=== PATIENT | male | born 1990 | race Two or more races ===

== ENCOUNTER 2016-04-13 11:11 | Emergency (ER) | payer SELFPAY ==
--- NOTE | 2016-04-13 11:45 | ER Document Report ---
ED Medical Screen (RME) - General Stated Complaint: FLU LIKE SYMPTOMS Notes: patient is a 25 year old male p/w body aches, headache, warm flashes, nausea, nasal drainage, sore throat since this AM. dry cough (-) influenza vaccine I have greeted and performed a rapid initial assessment of this patient. A comprehensive ED assessment and evaluation of the patient, analysis of test results and completion of the medical decision making process will be conducted by additional ED providers. TRAVEL OUTSIDE OF THE [place] IN LAST 30 DAYS: No - Related Data Allergies/Adverse Reactions: dextromethorphan HBr [From Pertussin CS] Allergy (Verified 06/22/12 09:18)
--- NOTE | 2016-04-13 16:28 | ER Document Report ---
[id number] Chief Complaint: Pain All Over Stated Complaint: FLU LIKE SYMPTOMS Notes: Patient is a 25 her male presenting to the emergency department concerned of flulike symptoms onset this morning. Patient admits to bodyaches, bbreathe in deep hurts, headache, cough, sore throat. no med issues. no pcp. 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 Illness going around work. smoker. Normal pharynx. no rales, rhonchi or wheeze. heart good. (BLANCA HERNÁNDEZ) - Related Data Allergies/Adverse Reactions: dextromethorphan HBr [From Pertussin CS] Allergy (Verified 06/22/12 09:18) Past Medical History - Social History Smoking Status: Never Smoker Chew tobacco use (# tins/day): No Frequency of alcohol use: None Drug Abuse: None Family History: Reviewed & Not Pertinent Patient has suicidal ideation: No Patient has homicidal ideation: No Renal/ Medical History: Denies: Hx Peritoneal Dialysis Course - Re-evaluation Re-evalutation: 04/13/16 17:53 I personally performed the services described in the documentation, reviewed and edited the documentation which was dictated to my scribe in my presence, and it accurately records my words and actions. presents emergency department with mild cough and body aches that started this morning he was at work and figured he better get checked up as his other people sick at the place where he works. He is afebrile not tachycardic no acute distress she is well-appearing nontoxic negative HEENT lungs are clear abdomen soft no external signs of trauma belly is nonacute. Flu test is negative supportive care work excuse for today tomorrow for primary care physician to 3 days Tylenol Motrin comfortable with this plan stable for discharge and discussed reasons for ED return sooner (MAGNUS ZALDIVAR) - Vital Signs Vital signs: Temp Pulse Resp BP Pulse Ox 98.3 F 86 16 114/63 97 04/13/16 17:50 04/13/16 17:50 04/13/16 17:50 04/13/16 17:50 04/13/16 17:50 (MAGNUS ZALDIVAR) Discharge - Discharge Clinical Impression: Viral upper respiratory illness Condition: Stable Disposition: HOME, SELF-CARE Additional Instructions: Upper Respiratory Illness You have a viral infection of the respiratory passages -- a "cold." This common infection causes nasal congestion, drainage, and often sore throat and cough. It is caused by a virus and is highly contagious. The disease usually lasts a week or more, though the worst symptoms are usually over in 3 or 4 days. There is no "cure" for the viral infection -- it must run its course. If there is a complication, such as bacterial infection in the nose, sinuses, middle ear, or bronchial tubes, antibiotics may be required, but antibiotics won 't affect the virus. If you smoke, you should STOP!! Drink plenty of fluids. A humidifier may help. An expectorant medication or decongestant may make you more comfortable. Use acetaminophen or ibuprofen for fever or aches. See the doctor if fever persists over two or three days, if there is any significant worsening of your symptoms, or if you simply fail to improve as expected. Forms: Return to Work Scribe Documentation - Scribe Written by Demetrio:: Blanca Hernández 04/13/2016 0703 acting as scribe for :: Kai
[2016-04-13 17:53] VITALS: BP 114/63
== END 2016-04-13 17:58 | disposition home or self-care (01) ==
LOC: ER 11:11
DX: J06.9 Acute upper respiratory infection, unspecified (principal); B97.89 Other viral agents as the cause of diseases classified elsewhere; R51 Headache; R07.1 Chest pain on breathing; J02.9 Acute pharyngitis, unspecified; R05 Cough; Z88.8 Allergy status to other drugs, medicaments and biological substances
CPT/HCPCS: 87804; 99283

== ENCOUNTER 2016-12-03 10:44 | Emergency (ER) | payer SELFPAY ==
--- NOTE | 2016-12-03 11:18 | ER Document Report ---
HPI - HPI Patient complains to provider of: left shoulder pain Pain Level: 4 Context: Patient is a 26-year-old male complains of left shoulder pain. Denies any fall , trauma. Patient states that yesterday he was cleaning around the house and had gradual onset of left shoulder pain. Woke up this morning it was really severe and he felt like he could not lift his arm up. Otherwise he denies any history of previous trauma, surgery to the shoulder. - DERM Skin Color: Normal Past Medical History - Social History Smoking Status: Current Every Day Smoker Chew tobacco use (# tins/day): No Frequency of alcohol use: Occasional Drug Abuse: None Family History: Reviewed & Not Pertinent Renal/ Medical History: Denies: Hx Peritoneal Dialysis Vertical Provider Document - CONSTITUTIONAL Agree With Documented VS: Yes Exam Limitations: No Limitations General Appearance: WD/WN, No Apparent Distress - INFECTION CONTROL TRAVEL OUTSIDE OF THE [place] IN LAST 30 DAYS: No - RESPIRATORY O2 Sat by Pulse Oximetry: 98 - CARDIOVASCULAR Pulses: Normal: Radial - Capillary refill less than 2 seconds in all upper extremity digits - MUSCULOSKELETAL/EXTREMETIES Musculoskeletal/Extremeties: MAEW, FROM, Tender - over AC joint, No Edema. negative: Eccymosis - NEURO Level of Consciousness: Awake, Alert, Appropriate Motor/Sensory: No Motor Deficit, No Sensory Deficit. negative: Weak Motor Strength RUE, Weak Motor Strength LUE - DERM Integumentary: Warm, Dry, No Rash Course - Re-evaluation Re-evalutation: 12/03/16 12:11 Patient is a 26-year-old male is hemodynamic stable, no acute distress and afebrile. X-ray shows evidence of degeneration between the AC joint and the left shoulder. No evidence of a septic joint, gout flare,dislocation, or fracture on exam and imaging. Vitals wnl. At this time, I do not see an indication for labs or further imaging. Will discharge with conservative measures, return precautions, and follow-up recommendations. - Vital Signs Vital signs: Temp Pulse Resp BP Pulse Ox 98.2 F 96 16 127/88 H 98 12/03/16 10:52 12/03/16 10:52 12/03/16 10:52 12/03/16 10:52 12/03/16 10:52 - Diagnostic Test Radiology reviewed: Image reviewed, Reports reviewed Discharge - Discharge Clinical Impression: AC joint arthropathy Condition: Good Disposition: HOME, SELF-CARE Instructions: Acetaminophen, Use of Mjgh-Oam-Htpwcll Ibuprofen ([facility]), Arthritis ([facility]), Exercise Program for the Shoulder ([facility], [facility]) Referrals: [facility] [Provider Group] - Follow up as needed [facility] [Provider Group] - Follow up as needed
--- NOTE | 2016-12-03 11:37 | RADIOLOGY REPORT (SQ) ---
EXAM DESCRIPTION: SHOULDER LEFT 2 OR MORE VIEWS COMPLETED DATE/TIME: 12/03/2016 11:29 am REASON FOR STUDY: pain COMPARISON: None. NUMBER OF VIEWS: Three views. TECHNIQUE: Internal rotation, external rotation, and Y view images acquired of the left shoulder. LIMITATIONS: None. FINDINGS: MINERALIZATION: Normal. BONES: No acute fracture or dislocation. No worrisome bone lesions. JOINTS: Mild degenerative change of the acromioclavicular joint. VISUALIZED LUNGS AND RIBS: No pneumothorax. No rib fracture. SOFT TISSUES: No radiopaque foreign body. OTHER: No other significant finding. IMPRESSION: MILD DEGENERATIVE CHANGE ACROMIOCLAVICULAR JOINT. NO RADIOGRAPHIC EVIDENCE OF ACUTE INJU RY. TECHNICAL DOCUMENTATION: JOB ID: [id number] [employer]- All Rights Reserved
[2016-12-03] MEDS ORDERED: KETOROLAC TROMETHAMINE INJ/PF 30 MG/1 ML SDV IM ONE (12:10)
[2016-12-03 12:31] VITALS: BP 117/66
== END 2016-12-03 12:20 | disposition home or self-care (01) ==
LOC: ER 10:44
DX: M13.812 Other specified arthritis, left shoulder (principal); M25.512 Pain in left shoulder; F17.200 Nicotine dependence, unspecified, uncomplicated
CPT/HCPCS: 99283; 96372; 73030; J1885

== ENCOUNTER 2019-11-10 00:38 | Emergency (ER) | payer SELFPAY ==
[2019-11-10] MEDS ORDERED: DIPH/PERTUSS(ACELL)/TETANUS VAC/PF 0.5 ML SYR (>=10YO) IM ONE (01:09)
--- NOTE | 2019-11-10 01:10 | ER Document Report ---
ED Medical Screen (RME) - General Chief Complaint: Laceration Stated Complaint: FINGER BLEEDING Time Seen by Provider: 11/10/19 01:08 Notes: HPI: 29-year-old male presenting for evaluation of a laceration to the left thumb. Patient was using a razor knife to open a toy for his son and cut his thumb. Denies numbness or tingling in the tip of the thumb states he can fully flex and extend the thumb is not up-to-date on his tetanus vaccination PHYSICAL EXAMINATION: 1.5 cm laceration noted to the medial proximal phalanx of the left thumb. I have greeted and performed a rapid initial assessment of this patient. A comprehensive ED assessment and evaluation of the patient, analysis of test results and completion of medical decision making process will be conducted by an additional ED providers. TRAVEL OUTSIDE OF THE [place] IN LAST 30 DAYS: No - Related Data Allergies/Adverse Reactions: dextromethorphan HBr [From Pertussin CS] Allergy (Verified 12/03/16 10:51) Past Medical History - Social History Chew tobacco use (# tins/day): No Frequency of alcohol use: Occasional Drug Abuse: None Renal/ Medical History: Denies: Hx Peritoneal Dialysis Physical Exam - Vital signs Vitals: Temp Pulse Resp BP Pulse Ox 98.8 F 111 H 16 123/71 96 11/10/19 00:43 11/10/19 00:43 11/10/19 00:43 11/10/19 00:43 11/10/19 00:43 Course - Vital Signs Vital signs: Temp Pulse Resp BP Pulse Ox 98.8 F 111 H 16 123/71 96 11/10/19 01:05 11/10/19 00:43 11/10/19 00:43 11/10/19 00:43 11/10/19 00:43
[2019-11-10] MEDS ORDERED: LIDOCAINE 2% INJ (20 MG/ML) 20 ML MDV INJ ONE (03:12)
--- NOTE | 2019-11-10 03:18 | ER Document Report ---
ED General - General Chief Complaint: Laceration Stated Complaint: FINGER BLEEDING Time Seen by Provider: 11/10/19 01:08 TRAVEL OUTSIDE OF THE [place] IN LAST 30 DAYS: No - HPI Context: This is a 29-year-old male presenting to the emergency department complaining of laceration to his left thumb. Patient states he was using a razor blade to open to toy for sign and cut his thumb. Patient describes the pain as burning but mild. Patient denies numbness or tingling at the tip of the thumb and states he can fully flex and extend thumb without difficulty. Patient states he has not had a tetanus booster in over 5 years. Patient states movement and palpation of the laceration exacerbates the pain and keeping thumb still alleviates the pain. Associated symptoms: Other - See HPI Exacerbated by: Other - See HPI Relieved by: Other - See HPI - Related Data Allergies/Adverse Reactions: dextromethorphan HBr [From Pertussanali CS] Allergy (Verified 12/03/16 10:51) Past Medical History - General Information source: Patient - Social History Smoking Status: Current Every Day Smoker Chew tobacco use (# tins/day): No Frequency of alcohol use: Occasional Drug Abuse: None Family History: Reviewed & Not Pertinent Patient has homicidal ideation: No Renal/ Medical History: Denies: Hx Peritoneal Dialysis Review of Systems - Review of Systems Constitutional: No symptoms reported EENT: No symptoms reported Cardiovascular: No symptoms reported Respiratory: No symptoms reported Gastrointestinal: No symptoms reported Genitourinary: No symptoms reported Male Genitourinary: No symptoms reported Musculoskeletal: See HPI Skin: See HPI Hematologic/Lymphatic: No symptoms reported Neurological/Psychological: No symptoms reported -: Yes All other systems reviewed and negative Physical Exam - Vital signs Vitals: Temp Pulse Resp BP Pulse Ox 98.8 F 111 H 16 123/71 96 11/10/19 00:43 11/10/19 00:43 11/10/19 00:43 11/10/19 00:43 11/10/19 00:43 - Notes Notes: CONSTITUTIONAL [Vital signs reviewed, Patient appears comfortable, Alert and oriented X 3, Normal stature.] HEAD [Atraumatic, Normocephalic.] EYES [Eyes are normal to inspection, No discharge from eyes, Extraocular muscles intact, Sclera are normal, Conjunctiva are normal.] NECK [Normal ROM, No jugular venous distention, No meningeal signs, no carotid bruit.] RESPIRATORY CHEST [Chest is nontender, Breath sounds normal, No respiratory distress.] CARDIOVASCULAR [RRR, No murmurs, Normal S1 S2, No rub, No gallop.] ABDOMEN [Abdomen is nontender, No pulsatile masses, No other masses, Bowel sounds normal, No distension, No peritoneal signs, No hernias.] BACK [There is no CVA Tenderness, There is no tenderness to palpation, Normal inspection.] UPPER EXTREMITY Left thumb has cap refill of less than 2 seconds. There is a 1.5 cm laceration on the dorsal surface of the thumb in between the MCP and IP joint. Patient has full active flexion extension of the thumb. LOWER EXTREMITY [Inspection normal, No cyanosis, No clubbing, No edema, No calf tenderness, 2+ femoral pulses.] NEURO [No focal motor deficits, No focal sensory deficits, Speech normal.] SKIN 1.5 cm linear laceration is present on the dorsal surface of the left thumb between the MCP and IP. Exploration of the wound reveals no evidence of tendon laceration. LYMPHATIC [No adenopathy in neck.] PSYCHIATRIC [Normal affect. ] Course - Vital Signs Vital signs: Temp Pulse Resp BP Pulse Ox 98.8 F 111 H 16 123/71 96 11/10/19 01:05 11/10/19 00:43 11/10/19 00:43 11/10/19 00:43 11/10/19 00:43 Procedures - Laceration/Wound Repair Left Thumb Time completed: 03:46 Wound length (cm): 1.5 Wound's Depth, Shape: Linear Laceration pre-procedure: Sterile PPE Dwayne stark applied Anesthetic type: 2% Lidocaine Volume Anesthetic (mLs): 2 Wound explored: Clean, No foreign body removed Irrigated w/ Saline (mLs): 10 Wound Repaired With: Sutures Suture Size/Type: 3:0, Prolene Number of Sutures: 4 - running Layer Closure?: No Post-procedure wound care: Sterile dressing applied Post-procedure NV exam normal: Yes Complications: No Discharge - Discharge Clinical Impression: Thumb laceration Qualifiers: Encounter type: initial encounter Damage to nail status: without damage Foreign body presence: without foreign body Laterality: left Qualified Code(s): S61.012A - Laceration without foreign body of left thumb without damage to nail, initial encounter Condition: Stable Disposition: HOME, SELF-CARE Instructions: Antibiotic Ointment Protection ([facility]), Laceration Care ([facility]), Tetanus Immunization Given ([facility]) Additional Instructions: Return to the Emergency Department without delay if any worse. Follow-up with your primary care provider or return to the emergency department in 10 days for suture removal. HOME CARE INSTRUCTIONS & INFORMATION: Thank you for choosing us for your medical needs. We hope you're satisfied with the care you received. After you leave, you must properly care for your problem and, at the same time, observe its progress. Any condition can change. Some illnesses can change rapidly over hours or days. If your condition worsens, return to the Emergency Department or see your physician promptly. ABOUT YOUR X-RAYS AND EKG'S: If you had an EKG or X-rays taken, they have been read by the Emergency Physician. The X-rays and EKG's will also be read by a Radiologist or Shoemaker Apprentice within 24 hours. If discrepancies are noted, you will be notified by telephone. Please be certain the ED has a correct telephone number & address where you can be reached. Also, realize that some fractures or abnormalities do not show up on initial X-rays. If your symptoms continue, see your physician. ABOUT YOUR LABORATORY TEST: If you had laboratory tests, the results have been reviewed by the Emergency Physician. Some test results (for example cultures) may not be available for several days. You will be contacted if any test result shows you need additional treatment. Please be certain the ED has a correct telephone number and address where you can be reached. ABOUT YOUR MEDICATIONS: You will receive instructions on how to take your medicine on the prescription label you receive. Additional information may be provided by the Pharmacy. If you have questions afterwards, call the ED for clarification or further instructions. Some prescribed medications may cause drowsiness. Do not perform tasks such as driving a car or operating machinery without consulting your Pharmacist. If you feel you need a refill of pain medication, your condition will need re-evaluation. Please do not call for a refill of any medication. ABOUT YOUR SIGNATURE: Signature of this document acknowledges to followin. Understanding that you received emergency treatment and that you may be released before al medical problems are known or treated. Please be certain the ED has a correct phone number & address where you can be reached. 2. Acknowledgement that you will arrange for follow-up care as recommended. 3. Authorization for the Emergency Physician to provide information to your follow-up Physician in order to maximize your care. AT ANY TIME, IF YOUR SYMPTOMS CHANGE SIGNIFICANTLY OR WORSEN OR YOU DEVELOP NEW SYMPTOMS, RETURN TO THE EMERGENCY DEPARTMENT IMMEDIATELY FOR RE-EVALUATION. OUR GOAL IS TO PROVIDE EXCELLENT MEDICAL CARE! WE HOPE THAT WE HAVE MET YOUR EXPECTATIONS DURING YOUR EMERGENCY DEPARTMENT VISIT AND THAT YOU FEEL YOU HAVE RECEIVED EXCELLENT CARE! Referrals: CHICA CASTLE MD [HONORARY] - Follow up as needed
[2019-11-10 04:10] VITALS: BP 118/64
== END 2019-11-10 04:01 | disposition home or self-care (01) ==
LOC: ER 00:38
DX: S61.012A Laceration without foreign body of left thumb without damage to nail, initial encounter (principal); W26.8XXA Contact with other sharp object(s), not elsewhere classified, initial encounter; Y93.89 Activity, other specified; F17.200 Nicotine dependence, unspecified, uncomplicated; Z23 Encounter for immunization; Z88.8 Allergy status to other drugs, medicaments and biological substances
CPT/HCPCS: 99283; 90471; 90715; 12001; J3490